=== PATIENT | male | born 1985 | race Caucasian/White ===

== ENCOUNTER 2016-08-09 22:38 | Emergency (ER) | payer OTHER ==
[2016-08-09 23:29] LABS: CHLORIDE,CL 104 mmol/L (98-107); SODIUM,NA 142 mmol/L (136-145)
[2016-08-10 01:38] VITALS: BP 118/82
--- NOTE | 2016-08-11 08:24 | ER ---
Date of Service: 08/09/2016 SUBJECTIVE: Dennis presents to the emergency room with complaints of frontal headache and pupillary asymmetry. The patient states that he presented to the emergency room in [place] and was advised to come to the ER here in [place], as their CT scanner was currently undergoing maintenance in [place]. The patient states that he has been experiencing some blurred vision and pupillary asymmetry involving the left eye. He was evaluated at [facility] and was started on some cycloplegic medications that he is unable to recall. The patient states that he has noticed that his pupils are symmetrical, but he is experiencing ocular pain and frontal headache. He states that he is not experiencing any other acute neuro symptoms such as numbness or tingling in his extremities or face, difficulties with speech, or difficulties with ambulation. PAST MEDICAL HISTORY: Denies. MEDICATIONS: None. ALLERGIES: NKDA. REVIEW OF SYSTEMS: General: No fever or chills. HEENT: No sore throat, rhinorrhea, congestion. Please see history of present illness. Respiratory: No shortness of breath. Cardiac: Denies any substernal chest pain. No jaw, arm, neck, or back pain. Nausea, vomiting, or diarrhea. No melena, hematochezia, or hematemesis. : Denies any dysuria. Musculoskeletal: No myalgias arthralgias. Neurologic: Please see history of present illness. PHYSICAL EXAMINATION: General: A 31-year-old male patient, who is in no acute distress. Vital Signs: Please see nurse's notes. Skin: Warm, pink, and dry. HEENT: Head is normocephalic, atraumatic. Eyes, PERRLA. Extraocular is intact. There is no funduscopic papilledema. No pupillary asymmetry noted. Mouth, oral mucosa is moist. Lungs: Clear to auscultation. Heart: Regular rate and rhythm. Abdomen: Soft, nontender. There is no hepatosplenomegaly or masses noted. Extremities: Without edema. Neurologic: Cranial nerves 2 through 12 are intact. His patellar and brachioradialis reflexes are 2+. His Romberg is negative. He has no pronator drift. His gait, walking normally as well as on his toes and on his heels was within normal limits. DIAGNOSTIC DATA: CT scan of the patient's brain without contrast was obtained and was negative for acute pathology. LABORATORY DATA: Hematology: WBCs 5.3, hemoglobin is 13.8, platelets are 214. Coags, PT is 11.2, INR is 1.0. Chemistry: Sodium is 142, potassium is 4.2, chloride is 104, bicarb is 30, BUN is 21, creatinine is 1.4. GFR is 59, glucose is 75, calcium is 8.6, corrected calcium is 8.28, total bilirubin is 0.3, AST is 19, ALT is 26, alkaline phosphatase is 81. C-reactive protein is less than 0.2, total protein is 8.0. ASSESSMENT: 1. Pupillary asymmetry by history. 2. Frontal headache, resolved. PLAN: The patient will be discharged. It does appear that this is an ophthalmologic problem as opposed to an issue involving a central nervous system. 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 Continue with his cycloplegic medications. All questions were answered. MWK: 08/10/2016 01:08:28 MODL: 08/10/2016 01:42:12 /[id number]
== END 2016-08-10 00:12 | disposition home or self-care (01) ==
LOC: VM.ED 22:38
DX: R51 Headache (principal); Q15.8 Other specified congenital malformations of eye
CPT/HCPCS: 36415; 70450; 80053; 85025; 85610; 86140; 99284